=== PATIENT | female | born 1960 | race Hispanic/Latino ===

== ENCOUNTER 2018-01-13 16:53 | Emergency (ER) | payer SELFPAY ==
[2018-01-13 17:13] VITALS: BP 156/87
== END 2018-01-13 23:06 | disposition left against medical advice (07) ==
LOC: ED 16:53
DX: Z53.21 Procedure and treatment not carried out due to patient leaving prior to being seen by health care provider (principal)

== ENCOUNTER 2021-06-23 12:23 | Outpatient (CLI) | payer OTHER ==
--- NOTE | 2021-06-24 07:54 | Mammography Report ---
BILATERAL DIGITAL SCREENING MAMMOGRAM WITH CAD HISTORY: Screening mammogram. TECHNIQUE: Routine digital mammographic imaging performed. This examination was interpreted with caleb rousseau benefit of Computer-aided Detection analysis. COMPARISON: None currently available. The patient reports prior mammograms at an outside facility in these will be requested. FINDINGS: Breast Density: scattered fibroglandular appearance of the breast tissue. Digital CC and MLO views demonstrate an asymmetry in the right subareolar breast. No suspicious find ings within the left breast. IMPRESSION: Right breast asymmetry for which comparison to prior outside mammograms is recommended to assess stab ility. We will request prior mammograms and an addendum will be added to this report once they are re ceived. BIRADS 0-Incomplete: Needs additional imaging evaluation NOTE: WE WILL RECALL THE PATIENT FOR THIS ADDITIONAL EVALUATION. FURTHER INFORMATION: According to the [employer], yearly mammograms are recommend ed starting at age 40 and continuing as long as a woman is in good health. Clinical Breast Exams shou ld be part of a periodic health exam-about every 3 years for women in their 20s and 30s and every yea r for women 40 and over. Breast self exam is an option for women starting in their 20s. Any breast ch murphy noted on a breast self exam should be reported promptly to the patient's healthcare provider. Br east MRI is recommended for women with an approximately 20-25% or greater lifetime risk of breast can cer, including women with a strong family history of breast or ovarian cancer and women who have been treated for Hodgkin's disease. A negative Mammography report should not discourage follow up or biopsy of a clinically significant f inding and/or abnormality. Dense breast tissue may obscure small neoplasms. The patient will be entered into a reminder system with a target due date for the next screening mamm ogram. Signer Name: Lino Lord MD Signed: 06/24/2021 7:50 AM Workstation Name: [id number]
== END 2021-06-23 12:24 | disposition home or self-care (01) ==
LOC: MAMMO 12:23
PROVIDERS: ATTEND Internal Medicine
DX: Z12.31 Encounter for screening mammogram for malignant neoplasm of breast (principal)
CPT/HCPCS: 77067

== ENCOUNTER 2021-07-30 10:11 | Outpatient (CLI) | payer OTHER ==
--- NOTE | 2021-08-04 11:06 | Ultrasound Report ---
RIGHT DIGITAL DIAGNOSTIC MAMMOGRAM WITH CAD , 07/30/2021 RIGHT LIMITED BREAST ULTRASOUND CLINICAL INFORMATION / INDICATION: Abnormal screening mammogram. Screening recall of the right breast for new asymmetry. TECHNIQUE: Digital right mammographic imaging was performed. Limited ultrasound was performed. This e xamination was interpreted with the benefit of Computer-Aided Detection (CAD) analysis. COMPARISON: Bilateral screening mammogram, 06/23/2021. We have now received the patient's prior mammo grams from [facility] from 09/15/2019 for comparison. FINDINGS: Breast Density: There are scattered areas of fibroglandular density. MAMMOGRAPHIC FINDINGS: The asymmetry question in the right retroareolar region on the recent screenin g mammogram is not clearly reproduced on today's images. The appearance of the breast parenchyma has not changed when compared to prior mammograms. No mammographic evidence of nipple retraction is visua lized. ULTRASOUND FINDINGS: Targeted ultrasound evaluation was performed of the area of interest. Sonograp hic evaluation of the right retroareolar region demonstrates no evidence of suspicious solid mass or shadowing. IMPRESSION: 1. The focal asymmetry question in the right retroareolar region is not reproduced on today's study. A six-month follow-up right mammogram is recommended to confirm stability. 2. Previous screening mammogram report questioned possible right nipple retraction. There is no mammo graphic evidence to suggest right nipple retraction but clinical correlation is recommended. Follow up recommendation: Short term follow up in 6 months. BI-RADS Category 3: Probably Benign. Followup in 6 months. A "normal" or negative report should not discourage follow up or biopsy of a clinically significant f inding. A written summary of these findings will be mailed to the patient. The patient will be entered into a mammography reporting system which will generate a reminder letter for the patient's next appointmen t at the appropriate interval. According to the [employer], yearly mammograms are recommended starting at age 40 and continuing as long as a woman is in good health. Breast MRI is recommended for women with an mk roximately 20-25% or greater lifetime risk of breast cancer, including women with a strong family his tory of breast or ovarian cancer and women who have been treated for Hodgkin's disease. Signer Name: Cherie Magallanes MD Signed: 08/04/2021 11:01 AM Workstation Name: [id number]
== END 2021-07-30 10:12 | disposition home or self-care (01) ==
LOC: MAMMO 10:11
PROVIDERS: ATTEND Internal Medicine
DX: R92.8 Other abnormal and inconclusive findings on diagnostic imaging of breast (principal)